=== PATIENT | female | born 1985 | race American Indian/Alaskan Native ===

== ENCOUNTER 2016-09-28 08:00 | Emergency (ER) | payer SELFPAY ==
[2016-09-28 08:32] LABS: Basophils % (Auto) 0.5 % (0.0-1.8); Hematocrit 41.9 % (30.3-42.9); Hemoglobin 14.3 gm/dl (10.1-14.3); Mean Corpuscular HGB Conc 34 % (30-34); Mean Corpuscular Hemoglobin 31 pg (28-32); Mean Corpuscular Volume 90 fl (79-97); Platelet Count 278 K/mm3 (140-440); Red Blood Count 4.65 M/mm3 (3.65-5.03); Red Cell Distribution Width 15.1 % (13.2-15.2); White Blood Count 7.9 K/mm3 (4.5-11.0)
[2016-09-28 08:56] LABS: Alanine Aminotransferase 12 units/L (7-56); Albumin 5.3 g/dL (3.9-5); Albumin/Globulin Ratio 1.4 %; Alkaline Phosphatase 63 units/L (35-129); Anion Gap 23 mmol/L; BUN/Creatinine Ratio 23.33; Bilirubin,Total 0.9 mg/dL (0.1-1.2); Blood Urea Nitrogen 14 mg/dL (7-17); Calcium 10.2 mg/dL (8.4-10.2); Carbon Dioxide 24 mmol/L (22-30); Glucose 110 mg/dL (65-100); Lipase 25 units/L (13-60); Potassium 3.5 mmol/L (3.6-5.0); Sodium 137 mmol/L (137-145); Total Protein 9.1 g/dL (6.3-8.2)
[2016-09-28 11:16] LABS: Bacteria,Urine 1+ /HPF (Negative); Bilirubin,Urine NEG (Negative); Blood,Urine NEG (Negative); Ketones,Urine 20 mg/dL (Negative); Leukocyte Esterase,Urine TR (Negative); Mucus,Urine 3+ /HPF; Nitrite,Urine NEG (Negative); Urobilinogen,Urine < 2.0 mg/dL (<2.0)
--- NOTE | 2016-09-28 16:46 | Emergency Department Report ---
ED Abdominal Pain HPI - General Chief Complaint: Abdominal Pain Stated Complaint: ABD PAIN Time Seen by Provider: 09/28/16 16:44 Source: patient Mode of arrival: Ambulatory Limitations: No Limitations - History of Present Illness Initial Comments: The patient complains of epigastric abdominal discomfort for the last 5 days. She states that she's been to the doctor several times for similar such discomfort. She is a poor historian and can't describe it very well. She has not been vomiting. She denies fever or chills. She states pain is not postprandial. She does not complain of any back pain or any apparent symptoms. She's had previous diagnostic testing for this problem with no specific diagnosis. She states that she does have a primary care provider. MD Complaint: abdominal pain -: Gradual Location: epigastric Radiation: none Migration to: no migration Severity: moderate Quality: aching Consistency: intermittent Improves With: nothing Worsens With: nothing Associated Symptoms: denies other symptoms - Related Data Previous Rx's Medication Instructions Recorded Last Taken Type Lansoprazole [Prevacid] 15 mg PO BID #20 cap 09/28/16 Unknown Rx Sulfamethoxazole/Trimethoprim 1 each PO BID #10 tablet 09/28/16 Unknown Rx [Bactrim DS TAB] traMADol [Ultram] 50 mg PO Q6HR PRN #10 tablet 09/28/16 Unknown Rx Allergies Allergy/AdvReac Type Severity Reaction Status Date / Time No Known Allergies Allergy Unverified 10/20/14 16:54 ED Review of Systems ROS: Stated complaint: ABD PAIN Other details as noted in HPI Constitutional: denies: chills, fever Eyes: denies: eye pain, eye discharge, vision change ENT: denies: ear pain, throat pain Respiratory: denies: cough, shortness of breath, wheezing Cardiovascular: denies: chest pain, palpitations Endocrine: no symptoms reported Gastrointestinal: as per HPI, abdominal pain. denies: nausea, diarrhea Genitourinary: denies: urgency, dysuria, discharge Musculoskeletal: denies: back pain, joint swelling, arthralgia Skin: denies: rash, lesions Neurological: denies: headache, weakness, paresthesias Psychiatric: denies: anxiety, depression Hematological/Lymphatic: denies: easy bleeding, easy bruising ED Past Medical Hx - Past Medical History Previous Medical History?: Yes Hx Hypertension: No Hx Congestive Heart Failure: No Hx Diabetes: No Hx Deep Vein Thrombosis: No Hx Renal Disease: No Hx Sickle Cell Disease: No Hx Seizures: No Hx Asthma: No Hx COPD: No Hx HIV: No Additional medical history: Vaginal delivery x 5 - Surgical History Past Surgical History?: No - Social History Smoking Status: Never Smoker Substance Use Type: None - Medications Home Medications: Home Medications Medication Instructions Recorded Confirmed Last Taken Type Lansoprazole [Prevacid] 15 mg PO BID #20 cap 09/28/16 Unknown Rx Sulfamethoxazole/Trimethoprim 1 each PO BID #10 tablet 09/28/16 Unknown Rx [Bactrim DS TAB] traMADol [Ultram] 50 mg PO Q6HR PRN #10 tablet 09/28/16 Unknown Rx ED Physical Exam - General Limitations: No Limitations General appearance: alert, in no apparent distress - Head Head exam: Present: atraumatic, normocephalic - Eye Eye exam: Present: normal appearance - ENT ENT exam: Present: normal exam, mucous membranes moist - Neck Neck exam: Present: normal inspection - Respiratory Respiratory exam: Present: normal lung sounds bilaterally. Absent: respiratory distress - Cardiovascular Cardiovascular Exam: Present: regular rate, normal rhythm. Absent: systolic murmur, diastolic murmur, rubs, gallop - GI/Abdominal GI/Abdominal exam: Present: soft, normal bowel sounds, other (this was a totally negative abdominal examination). Absent: distended, tenderness, guarding, rebound, rigid, organomegaly, mass, bruit, pulsatile mass, hernia - Extremities Exam Extremities exam: Present: normal inspection - Back Exam Back exam: Present: normal inspection - Neurological Exam Neurological exam: Present: alert, oriented X3 - Psychiatric Psychiatric exam: Present: normal affect, normal mood - Skin Skin exam: Present: warm, dry, intact, normal color. Absent: rash ED Course Vital Signs 09/28/16 09/28/16 08:06 16:31 Temperature 98.7 F 98.6 F Pulse Rate 84 Respiratory 18 Rate Blood Pressure 152/108 O2 Sat by Pulse 100 100 Oximetry - Reevaluation(s) Reevaluation #1: Patient was found to have persistent hypertension. She will be started on an oral agent. She is appropriate for outpatient follow-up. 09/28/16 17:41 ED Medical Decision Making - Lab Data Result diagrams: 09/28/16 08:18 09/28/16 08:18 Laboratory Results - last 24 hr 09/28/16 09/28/16 09/28/16 08:18 08:18 10:44 WBC 7.9 RBC 4.65 Hgb 14.3 Hct 41.9 MCV 90 MCH 31 MCHC 34 RDW 15.1 Plt Count 278 Lymph % (Auto) 18.2 Cotton % (Auto) 5.8 Eos % (Auto) 0.0 Baso % (Auto) 0.5 Lymph # 1.4 Cotton # 0.5 Eos # 0.0 Baso # 0.0 Seg Neutrophils % 75.5 H Seg Neutrophils # 6.0 Sodium 137 Potassium 3.5 L Chloride 94.0 L Carbon Dioxide 24 Anion Gap 23 BUN 14 Creatinine 0.6 L Estimated GFR > 60 BUN/Creatinine Ratio 23.33 Glucose 110 H Calcium 10.2 Total Bilirubin 0.9 AST 15 ALT 12 Alkaline Phosphatase 63 Total Protein 9.1 H Albumin 5.3 H Albumin/Globulin Ratio 1.4 Lipase 25 Urine Color Yellow Urine Turbidity Clear Urine pH 5.0 Ur Specific [place] 1.032 H Urine Protein 100 mg/dl Urine Glucose (UA) Neg Urine Ketones 20 Urine Blood Neg Urine Nitrite Neg Ur Reducing Substances Not Reportable Urine Bilirubin Neg Urine Ictotest Not Reportable Urine Urobilinogen < 2.0 Ur Leukocyte Esterase Tr Urine WBC (Auto) 17.0 H Urine RBC (Auto) 5.0 U Epithel Cells (Auto) 4.0 Urine Bacteria (Auto) 1+ Urine Mucus 3+ Urine HCG, Qual Negative Critical care attestation.: If time is entered above; I have spent that time in minutes in the direct care of this critically ill patient, excluding procedure time. ED Disposition Clinical Impression: Abdominal pain Qualifiers: Abdominal location: upper abdomen, unspecified Qualified Code(s): R10.10 - Upper abdominal pain, unspecified UTI (urinary tract infection) Qualifiers: Urinary tract infection type: site unspecified Hematuria presence: without hematuria Qualified Code(s): N39.0 - Urinary tract infection, site not specified Disposition: DISCHARGED TO HOME OR SELFCARE Is pt being admited?: No Does the pt Need Aspirin: No Condition: Stable Instructions: Abdominal Pain (ED), Urinary Tract Infection in Women (ED) Additional Instructions: Return any acute change or problem. Increase fluids. Follow-up with your primary care provider or at the [facility] as needed. Prescriptions: Lansoprazole [Prevacid] 15 mg PO BID #20 cap Sulfamethoxazole/Trimethoprim [Bactrim DS TAB] 1 each PO BID #10 tablet traMADol [Ultram] 50 mg PO Q6HR PRN #10 tablet PRN Reason: Pain Referrals: PRIMARY CARE,MD [Primary Care Provider] - 3-5 Days Time of Disposition: 17:43
[2016-09-28] MEDS ORDERED: PROTONIX PO ONE (17:45)
[2016-09-28] MEDS ORDERED: ULTRAM PO ONE (17:45)
[2016-09-28 19:25] VITALS: BP 165/105
== END 2016-09-28 18:05 | disposition home or self-care (01) ==
LOC: ED 08:00
DX: N39.0 Urinary tract infection, site not specified (principal)
CPT/HCPCS: 36415; 80053; 81001; 81025; 83690; 85025; 99283

== ENCOUNTER 2017-05-03 08:22 | Emergency (ER) | payer SELFPAY ==
[2017-05-03 08:29] VITALS: BP 144/98
[2017-05-03 09:13] LABS: Basophils % (Auto) 0.4 % (0.0-1.8); Hematocrit 37.6 % (30.3-42.9); Hemoglobin 12.6 gm/dl (10.1-14.3); Mean Corpuscular HGB Conc 33 % (30-34); Mean Corpuscular Hemoglobin 29 pg (28-32); Mean Corpuscular Volume 87 fl (79-97); Platelet Count 224 K/mm3 (140-440); Red Blood Count 4.32 M/mm3 (3.65-5.03); Red Cell Distribution Width 15.2 % (13.2-15.2); White Blood Count 8.5 K/mm3 (4.5-11.0)
[2017-05-03 09:23] LABS: Alanine Aminotransferase 79 units/L (7-56); Albumin 4.8 g/dL (3.9-5); Albumin/Globulin Ratio 1.4 %; Alkaline Phosphatase 53 units/L (35-129); Anion Gap 19 mmol/L; BUN/Creatinine Ratio 20; Blood Urea Nitrogen 10 mg/dL (7-17); Calcium 9.3 mg/dL (8.4-10.2); Carbon Dioxide 27 mmol/L (22-30); Chloride 92.8 mmol/L (98-107); Glucose 110 mg/dL (65-100); Lipase 24 units/L (13-60); Potassium 3.4 mmol/L (3.6-5.0); Sodium 135 mmol/L (137-145); Total Protein 8.3 g/dL (6.3-8.2)
[2017-05-03 10:18] LABS: Bacteria,Urine 1+ /HPF (Negative); Mucus,Urine FEW /HPF
[2017-05-03 10:41] LABS: Bilirubin,Urine NEG (Negative); Blood,Urine NEG (Negative); Ketones,Urine 20 mg/dL (Negative); Leukocyte Esterase,Urine MOD (Negative); Nitrite,Urine NEG (Negative)
[2017-05-03] MEDS ORDERED: NORCO 5/325 PO ONE (12:01)
[2017-05-03] MEDS ORDERED: ZOFRAN ODT PO ONE (12:01)
[2017-05-03] MEDS ORDERED: PEPCID PO ONE (12:08)
[2017-05-03] MEDS ORDERED: LIDOCAINE VISCOUS 2% PO ONE (12:08)
--- NOTE | 2017-05-03 12:20 | Emergency Department Report ---
HPI - General Chief Complaint: Abdominal Pain Time Seen by Provider: 05/03/17 11:22 - HPI HPI: The patient is a 31-year-old female presents for evaluation of abdominal pain. The patient reports abdominal pain for the past 4 hours, constant since onset, crampy in quality, epigastric in location, 10/10 in severity, exacerbated with eating. She also reports associated nausea, one to 2 episodes of vomiting, and multiple episodes of loose watery stools. The patient denies fever, chills, night sweats, blood in the stool, dark tarry stool, recent antibiotic use, dysuria, hematuria, flank pain, genital discharge, inability to pass flatus. ED Past Medical Hx - Past Medical History Previous Medical History?: No Hx Hypertension: No Hx Congestive Heart Failure: No Hx Diabetes: No Hx Deep Vein Thrombosis: No Hx Renal Disease: No Hx Sickle Cell Disease: No Hx Seizures: No Hx Asthma: No Hx COPD: No Hx HIV: No Additional medical history: Vaginal delivery x 5 - Social History Smoking Status: Never Smoker Substance Use Type: None - Medications Home Medications: Home Medications Medication Instructions Recorded Confirmed Last Taken Type Amlodipine Besylate [Norvasc] 2.5 mg PO DAILY #30 tab 09/28/16 Unknown Rx Lansoprazole [Prevacid] 15 mg PO BID #20 cap 09/28/16 Unknown Rx traMADol [Ultram 50 MG tab] 50 mg PO Q6HR PRN #10 tablet 09/28/16 Unknown Rx Omeprazole Magnesium [PriLOSEC Otc] 20 mg PO QDAY #14 tablet. 05/03/17 Unknown Rx Ondansetron [Zofran TAB] 4 mg PO Q8HR PRN #20 tablet 05/03/17 Unknown Rx traMADol [Ultram 50 MG tab] 50 mg PO Q6HR PRN #15 tablet 05/03/17 Unknown Rx ED Review of Systems ROS: Stated complaint: STOMACH Other details as noted in HPI Constitutional: denies: fever ENT: denies: throat or neck pain Respiratory: denies: cough, shortness of breath Cardiovascular: denies: chest pain Endocrine: denies unexplained weight loss or gain Gastrointestinal: reports abdominal pain, nausea Genitourinary: denies: dysuria Musculoskeletal: denies: leg swelling Skin: denies: rash Neurological: denies: headache Hematological/Lymphatic: denies: easy bleeding or easy bruising Psych: denies sadness or hopelessness Physical Exam - Physical Exam Vital Signs: Vital Signs 05/03/17 05/03/17 08:24 12:07 Temperature 99 F Pulse Rate 83 Respiratory 19 18 Rate Blood Pressure 144/98 O2 Sat by Pulse 100 Oximetry Physical Exam: General: well-nourished, well-developed, no acute distress Head: Normocephalic, atraumatic Eyes: normal sclera ENT: Mucous membranes are pink and moist Neck: trachea midline, neck supple, No neck stiffness, no cervical adenopathy Respiratory: Breath sounds equal bilaterally, no wheezing, rales, or rhonchi Cardio: S1 and S2 present, no murmurs, rubs, gallops, capillary refill is brisk Abdomen: Normoactive bowel sounds, soft abdomen, LUQ and epigastric abd pain, no rigidity, no guarding or rebound tenderness Chest WALL/Back: No tenderness to palpation of the chest wall, no CVA tenderness with percussion Musc: No pitting edema Skin: No rash Neuro: no facial drooping, normal speech Psych: Normal affect ED Course Vital Signs 05/03/17 05/03/17 08:24 12:07 Temperature 99 F Pulse Rate 83 Respiratory 19 18 Rate Blood Pressure 144/98 O2 Sat by Pulse 100 Oximetry ED Medical Decision Making - Lab Data Result diagrams: 05/03/17 08:54 05/03/17 08:54 - Medical Decision Making The patient was seen and examined by myself. The patient is placed on a director of cardiac rehabilitation and continuous pulse ox. On initial evaluation, the patient was found to be in no distress. Evaluation orders are placed. The patient is given a tablet of Zofran for nausea and [place] for pain. Lab results were non- concerning including WBC, hemoglobin, hematocrit, electrolytes, renal function, LFTs, lipase, negative test, and nml urinalysis. The patient was reevaluated and reported that their symptoms were markedly improved. The patient is stable for discharge with outpatient follow-up. The patient is given follow-up and return instructions. The patient expressed understanding and agreed with the plan. The patient is discharged in stable condition. Critical care attestation.: If time is entered above; I have spent that time in minutes in the direct care of this critically ill patient, excluding procedure time. ED Disposition Clinical Impression: Abdominal pain, acute, left upper quadrant, Acute epigastric pain, Nausea and vomiting in adult Disposition: DC-01 TO HOME OR SELFCARE Is pt being admited?: No Does the pt Need Aspirin: No Condition: Stable Instructions: Abdominal Pain (ED), Gastroenteritis (ED), Gastroesophageal Reflux Disease (ED) Prescriptions: Omeprazole Magnesium [PriLOSEC Otc] 20 mg PO QDAY #14 tablet. Ondansetron [Zofran TAB] 4 mg PO Q8HR PRN #20 tablet PRN Reason: Nausea traMADol [Ultram 50 MG tab] 50 mg PO Q6HR PRN #15 tablet PRN Reason: Pain Referrals: PRIMARY CARE,MD [Primary Care Provider] - 3-5 Days Time of Disposition: 12:16
== END 2017-05-03 12:25 | disposition home or self-care (01) ==
LOC: ED 08:22
DX: R10.13 Epigastric pain (principal); R11.2 Nausea with vomiting, unspecified
CPT/HCPCS: 36415; 80053; 81001; 81025; 83690; 85025; Q0162

== ENCOUNTER 2017-06-18 14:41 | Emergency (ER) | payer SELFPAY ==
[2017-06-18 15:56] LABS: Basophils % (Auto) 0.2 % (0.0-1.8); Hematocrit 39.4 % (30.3-42.9); Hemoglobin 12.6 gm/dl (10.1-14.3); Lymphocytes # (Auto) 0.9 K/mm3 (1.2-5.4); Lymphocytes % (Auto) 10.5 % (13.4-35.0); Mean Corpuscular HGB Conc 32 % (30-34); Mean Corpuscular Hemoglobin 28 pg (28-32); Mean Corpuscular Volume 88 fl (79-97); Monocytes # (Auto) 0.2 K/mm3 (0.0-0.8); Monocytes % (Auto) 2.7 % (0.0-7.3); Platelet Count 276 K/mm3 (140-440); Red Blood Count 4.46 M/mm3 (3.65-5.03); Red Cell Distribution Width 15.8 % (13.2-15.2)
[2017-06-18 16:54] LABS: Alanine Aminotransferase 15 units/L (7-56); Albumin 4.9 g/dL (3.9-5); BUN/Creatinine Ratio 15; Blood Urea Nitrogen 9 mg/dL (7-17); Calcium 10.1 mg/dL (8.4-10.2); Hemolysis Index 6
[2017-06-19] MEDS ORDERED: ZOFRAN IV ONE (07:11)
[2017-06-19] MEDS ORDERED: NACL 0.9% 1000 ML 1,000 ML IV ONE (07:11)
--- NOTE | 2017-06-19 07:20 | Emergency Department Report ---
ED Abdominal Pain HPI - General Chief Complaint: Abdominal Pain Stated Complaint: N/V Time Seen by Provider: 06/19/17 04:18 Source: patient Mode of arrival: Ambulatory Limitations: No Limitations - History of Present Illness Initial Comments: Patient is 31 years old female with no significant past medical history presented to the ER with chief complaint of abdominal pain diffuse, crampy and does not radiate associated with nausea and vomiting and watery diarrhea. Patient denied any fever. Patient stated that she just finished her period MD Complaint: abdominal pain -: Gradual, Last night Location: diffuse Severity scale (0 -10): 10 Quality: cramping Consistency: constant Associated Symptoms: nausea, vomiting, diarrhea - Related Data Previous Rx's Medication Instructions Recorded Last Taken Type Amlodipine Besylate [Norvasc] 2.5 mg PO DAILY #30 tab 09/28/16 Unknown Rx Lansoprazole [Prevacid] 15 mg PO BID #20 cap 09/28/16 Unknown Rx traMADol [Ultram 50 MG tab] 50 mg PO Q6HR PRN #10 tablet 09/28/16 Unknown Rx Omeprazole Magnesium [PriLOSEC Otc] 20 mg PO QDAY #14 tablet.dr 05/03/17 Unknown Rx Ondansetron [Zofran TAB] 4 mg PO Q8HR PRN #20 tablet 05/03/17 Unknown Rx traMADol [Ultram 50 MG tab] 50 mg PO Q6HR PRN #15 tablet 05/03/17 Unknown Rx Allergies Allergy/AdvReac Type Severity Reaction Status Date / Time No Known Allergies Allergy Unverified 06/18/17 15:34 ED Review of Systems ROS: Stated complaint: N/V Other details as noted in HPI Comment: All other systems reviewed and negative Constitutional: denies: chills, fever Respiratory: denies: cough, orthopnea, shortness of breath, SOB with exertion, SOB at rest Cardiovascular: denies: chest pain, palpitations, dyspnea on exertion Gastrointestinal: abdominal pain, nausea, vomiting, diarrhea. denies: constipation, hematemesis, melena, hematochezia Genitourinary: denies: urgency, dysuria, frequency, hematuria, discharge, abnormal menses, dyspareunia Skin: denies: rash, lesions, change in color, change in hair/nails Neurological: denies: headache, weakness, numbness, paresthesias, confusion, abnormal gait ED Past Medical Hx - Past Medical History Previous Medical History?: No Hx Hypertension: No Hx Congestive Heart Failure: No Hx Diabetes: No Hx Deep Vein Thrombosis: No Hx Renal Disease: No Hx Sickle Cell Disease: No Hx Seizures: No Hx Asthma: No Hx COPD: No Hx HIV: No Additional medical history: Vaginal delivery x 5 - Surgical History Past Surgical History?: No - Social History Smoking Status: Never Smoker Substance Use Type: None - Medications Home Medications: Home Medications Medication Instructions Recorded Confirmed Last Taken Type Amlodipine Besylate [Norvasc] 2.5 mg PO DAILY #30 tab 09/28/16 Unknown Rx Lansoprazole [Prevacid] 15 mg PO BID #20 cap 09/28/16 Unknown Rx traMADol [Ultram 50 MG tab] 50 mg PO Q6HR PRN #10 tablet 09/28/16 Unknown Rx Omeprazole Magnesium [PriLOSEC Otc] 20 mg PO QDAY #14 tablet.dr 05/03/17 Unknown Rx Ondansetron [Zofran TAB] 4 mg PO Q8HR PRN #20 tablet 05/03/17 Unknown Rx traMADol [Ultram 50 MG tab] 50 mg PO Q6HR PRN #15 tablet 05/03/17 Unknown Rx ED Physical Exam - General Limitations: No Limitations General appearance: alert, other (patient is actively vomiting) - Head Head exam: Present: atraumatic, normocephalic, normal inspection - Eye Eye exam: Present: normal appearance - ENT ENT exam: Present: mucous membranes dry - Neck Neck exam: Present: normal inspection, full ROM. Absent: tenderness, meningismus, lymphadenopathy, thyromegaly - Respiratory Respiratory exam: Present: normal lung sounds bilaterally. Absent: respiratory distress, wheezes, rales, rhonchi, stridor, chest wall tenderness, accessory muscle use, decreased breath sounds, prolonged expiratory - Cardiovascular Cardiovascular Exam: Present: tachycardia, normal heart sounds. Absent: systolic murmur, diastolic murmur, rubs - GI/Abdominal GI/Abdominal exam: Present: soft, tenderness, normal bowel sounds. Absent: distended, guarding, rebound, rigid, diminished bowel sounds, organomegaly, mass , bruit, pulsatile mass, hernia - Extremities Exam Extremities exam: Present: normal inspection, full ROM, normal capillary refill - Back Exam Back exam: Present: normal inspection, full ROM. Absent: tenderness, CVA tenderness (R), CVA tenderness (L), muscle spasm, paraspinal tenderness, vertebral tenderness - Neurological Exam Neurological exam: Present: alert, oriented X3, CN II-XII intact, normal gait - Skin Skin exam: Present: warm, dry, intact, normal color ED Course Vital Signs 06/18/17 06/19/17 06/19/17 15:31 00:20 06:42 Temperature 98.5 F 99.0 F 98.9 F Pulse Rate 107 H 92 H 97 H Respiratory 16 18 Rate Blood Pressure 146/106 146/113 Blood Pressure 150/100 [Left] O2 Sat by Pulse 100 100 98 Oximetry 06/19/17 08:24 Temperature Pulse Rate Respiratory 24 Rate Blood Pressure Blood Pressure [Left] O2 Sat by Pulse 98 Oximetry - Reevaluation(s) Reevaluation #1: 06/19/17 14:24 Patient stated that she is feeling much better, no abdominal pain and no vomiting. ED Medical Decision Making - Lab Data Result diagrams: 06/18/17 15:42 06/18/17 15:42 - Radiology Data Radiology results: report reviewed Referring Physician: MAVIS PETERSEN Patient Name: KEVIN NAPIER Date of : 1985 Sex: Female Report Date: 2017-06-19 Report Status: Finalized [place] [address] Cat Scan Report Signed Patient: KEVIN NAPIER MR#: [id number] : 1985 Acct:[id number] Age/Sex: 31 / F ADM Date: 06/18/17 Loc: ED Attending Dr: Ordering Physician: MAVIS PETERSEN Date of Service: 06/19/17 Procedure(s): CT abdomen pelvis w con Accession Number(s): [id number] cc: MAVIS PETERSEN CT ABDOMEN PELVIS WITH CONTRAST: HISTORY: abdominal pain. COMPARISON: none. TECHNIQUE: Helical CT in 1.25mm intervals following IV contrast. Sagittal and coronal reconstructions. FINDINGS: Lung bases: Normal. Liver: Normal. Biliary system: The gallbladder appears to be contracted and contains a few calcified gallstones measuring up to 1 cm. No biliary dilatation or inflammation is appreciated. Pancreas: Normal. Spleen: Normal. Kidneys/ureters/bladder: Normal. Adrenal glands: Normal. Aorta: Normal. Intestines: Unremarkable given no oral contrast was administered. Appendix: Normal. Pelvic viscera: The uterus and adnexa are unremarkable. An IUD is in place. Ascites: None. Adenopathy: None. Musculoskeletal: Normal. IMPRESSION: No acute process is identified in the abdomen or pelvis. Cholelithiasis. Transcribed By: TTR Dictated By: ELDON BIGGS JR, MD Electronically Authenticated By: ELDON BIGGS JR, MD Signed Date/Time: 06/19/171338 DD/ 36 TD/TT: 06/19/171338 Critical care attestation.: If time is entered above; I have spent that time in minutes in the direct care of this critically ill patient, excluding procedure time. ED Disposition Clinical Impression: Abdominal pain, Gastroenteritis Disposition: - TO HOME OR SELFCARE Is pt being admited?: No Condition: Stable Instructions: Abdominal Pain (ED), Gastroenteritis (ED) Referrals: TASH BROWER MD [Primary Care Provider] - 3-5 Days
[2017-06-19 08:47] LABS: Amorphous Crystals,Urine 2+; Bacteria,Urine 3+ /HPF (Negative); Bilirubin,Urine NEG (Negative); Blood,Urine NEG (Negative); Color,Urine Amber (Yellow); Mucus,Urine 3+ /HPF; Nitrite,Urine NEG (Negative)
[2017-06-19] MEDS ORDERED: REGLAN IV ONE (09:45)
--- NOTE | 2017-06-19 13:45 | Cat Scan Report ---
CT ABDOMEN PELVIS WITH CONTRAST: HISTORY: abdominal pain. COMPARISON: none. TECHNIQUE: Helical CT in 1.25mm intervals following IV contrast. Sagittal and coronal reconstructions. FINDINGS: Lung bases: Normal. Liver: Normal. Biliary system: The gallbladder appears to be contracted and contains a few calcified gallstones measuring up to 1 cm. No biliary dilatation or inflammation is appreciated. Pancreas: Normal. Spleen: Normal. Kidneys/ureters/bladder: Normal. Adrenal glands: Normal. Aorta: Normal. Intestines: Unremarkable given no oral contrast was administered. Appendix: Normal. Pelvic viscera: The uterus and adnexa are unremarkable. An IUD is in place. Ascites: None. Adenopathy: None. Musculoskeletal: Normal. IMPRESSION: No acute process is identified in the abdomen or pelvis. Cholelithiasis.
[2017-06-19 21:47] VITALS: BP 146/88
== END 2017-06-19 14:45 | disposition home or self-care (01) ==
LOC: ED 14:41
DX: K52.9 Noninfective gastroenteritis and colitis, unspecified (principal)
CPT/HCPCS: 36415; 74177; 80053; 81001; 83690; 84703; 85025; 96361; 96374; 96375; 99284; J2405; J2765; J7030; Q9967

== ENCOUNTER 2020-07-10 13:49 | Outpatient (CLI) | payer MEDICAID ==
[2020-07-10] MEDS ORDERED: LACTATED RINGERS 500 ML IV ONE (14:02)
[2020-07-10 14:59] LABS: Mucus,Urine FEW /HPF
[2020-07-10 15:00] LABS: Bilirubin,Urine NEG (Negative); Blood,Urine NEG (Negative); Color,Urine Yellow (Yellow); Protein,Urine <15 mg/dL mg/dL (Negative); Urobilinogen,Urine < 2.0 mg/dL (<2.0)
[2020-07-10] MEDS ORDERED: ACETAMINOPHEN 500 MG TAB PO ONE (17:25)
[2020-07-10 17:43] VITALS: BP 132/75
== END 2020-07-10 17:46 | disposition home or self-care (01) ==
LOC: TRG 13:49 → APU 13:50 → TRG 17:46
PROVIDERS: ATTEND Obstetrics & Gynecology
DX: O26.893 Other specified pregnancy related conditions, third trimester (principal); R10.9 Unspecified abdominal pain; Z3A.34 34 weeks gestation of pregnancy
CPT/HCPCS: 59025; 81001; J7120; 96360

== ENCOUNTER 2020-08-15 15:43 | Inpatient (IN) | payer MEDICAID ==
[2020-08-15] MEDS ORDERED: NalbUPHINE 10 MG/1 ML INJ IV PRN (15:50)
[2020-08-15] MEDS ORDERED: TERBUTALINE 1 MG/1 ML INJ SUB-Q PRN (15:50)
[2020-08-15] MEDS ORDERED: ONDANSETRON 4 MG/2 ML INJ IV PRN ×2 (15:50→22:38)
[2020-08-15] MEDS ORDERED: NALOXONE 0.4 MG/1 ML INJ IV PRN (15:50)
[2020-08-15] MEDS ORDERED: ACETAMINOPHEN 325 MG TAB PO PRN (15:50)
[2020-08-15] MEDS ORDERED: LIDOCAINE (2%) 20 MG/1 ML VIAL 20 ML MDV INFILTRATI ONE (15:50)
[2020-08-15] MEDS ORDERED: BUTORPHANOL 2 MG/1 ML INJ IV PRN ×2 (15:50)
[2020-08-15] MEDS ORDERED: ePHEDrine SULFATE 50 MG/1 ML INJ IV PRN ×2 (15:50→17:37)
[2020-08-15] MEDS ORDERED: fentaNYL 100 MCG/2 ML INJ IV PRN (15:50)
[2020-08-15] MEDS ORDERED: OXYTOCIN DRIP 30 UNITS/500 ML BAG IV SCH ×2 (16:00)
[2020-08-15] MEDS ORDERED: AMPICILLIN/NS 2 GM/100 ML 2 GM/100 ML BAG IV ONE (16:00)
[2020-08-15] MEDS ORDERED: LACTATED RINGERS 1,000 ML IV SCH (16:00)
[2020-08-15 16:18] LABS: Hematocrit 36.6 % (30.3-42.9); Hemoglobin 12.3 gm/dl (10.1-14.3); Mean Corpuscular HGB Conc 34 % (30-34); Mean Corpuscular Volume 83 fl (79-97); Red Cell Distribution Width 17.7 % (13.2-15.2)
[2020-08-15 16:30] LABS: Platelet Count 169 K/mm3 (140-440)
[2020-08-15] MEDS ORDERED: NALOXONE 2 MG/2 ML INJ IV PRN (17:37)
--- NOTE | 2020-08-15 17:38 | Anesthesia Consultation ---
Anesthesia Consult and Med Hx Date of service: 08/15/20 - Airway Anesthetic Teeth Evaluation: Good ROM Head & Neck: Adequate Mental/Hyoid Distance: Adequate Mallampati Class: Class II Intubation Access Assessment: Probably Good - Pulmonary Exam CTA: Yes - Cardiac Exam Cardiac Exam: RRR - Pre-Operative Health Status ASA Pre-Surgery Classification: ASA3 Proposed Anesthetic Plan: Epidural - Pulmonary Hx Smoking: No Hx Asthma: No COPD: No Hx Pneumonia: No Hx Sleep Apnea: No - Cardiovascular System Hx Hypertension: No Hx Coronary Artery Disease: No - Central Nervous System Hx Seizures: No CVA: No Hx Psychiatric Problems: No - Endocrine Hx Renal Disease: No Hx End Stage Renal Disease: No Hx Liver Disease: No Hx Insulin Dependent Diabetes: No Hx Non-Insulin Dependent Diabetes: Yes Hx Thyroid Disease: No Hx Hypothyroidism: No Hx Hyperthyroidism: No - Hematic Hx Anemia: No Hx Sickle Cell Disease: No - Other Systems Hx Alcohol Use: No Hx Cancer: No
--- NOTE | 2020-08-15 17:40 | Progress Note ---
Labor Epidural - Labor Epidural Start Time: 17:28 Stop Time: 17:32 Performed by:: BEN COOK Procedure: Patient is requesting epidural for labor pain. H&P, and labs reviewed. Procedure explained, questions answered, consent obtained. Patient in sitting position with blood pressure cuff and pulse ox on and working. Timeout performed immediately before start of procedure. Sterile chlorahexadine 0.5% prep/drape. 3 mL 1% lidocaine skin wheal at L[3]-L[4]. 18-gauge Tuohy epidural needle advanced to [id number] with saline at 5 cm. Epidural dexmedetomidine 25 mcg administered. Epidural catheter advanced to 10 cm, negative aspiration for blood and csf, negative test dose 3 ml 1.5% lidocaine with epinephrine. Sterile steri-strips and tegaderm applied, followed by tape reinforcement. Patient tolerated procedure well.
[2020-08-15] MEDS ORDERED: fentaNYL-BUPIV 2 MCG/ML-0.125% 200 MCG/100 ML BAG EPIDURAL SCH (19:00)
[2020-08-15] MEDS ORDERED: AMPICILLIN/NS 1 GM/50 ML 1 GM/50 ML BAG IV SCH (20:00)
[2020-08-15] MEDS ORDERED: SODIUM CHLORIDE 0.9% 1000 ML 1,000 ML ONE (20:16)
--- NOTE | 2020-08-15 20:31 | History and Physical Report ---
History of Present Illness Date of examination: 08/15/20 Date of admission: 08/15/20 15:44 Chief complaint: labor History of present illness: 34y/o @ 39+6 weeks presents in active labor. She denies leakage of fluid. Patient initiated care in the first trimester. Her course is complicated by grand multiparity, GDMA1, history of condyloma. Patient is GBS positive Past History Past Medical History: other (condyloma) Social history: - Obstetrical History Expected Date of Delivery: 08/16/20 Actual Gestation: 39 Week(s) 6 Day(s) : 6 Para: 5 Hx # Term Pregnancies: 4 Number of Pregnancies: 1 Spontaneous Abortions: 0 Induced : 0 Number of Living Children: 5 Medications and Allergies Allergies Allergy/AdvReac Type Severity Reaction Status Date / Time No Known Allergies Allergy Verified 07/10/20 14:06 Home Medications Medication Instructions Recorded Confirmed Last Taken Type One Daily Tablet 1 tab PO DAILY 08/15/20 08/15/20 08/15/20 09:00 History Active Meds: Active Medications Acetaminophen (Acetaminophen 325 Mg Tab) 650 mg PO Q4H PRN PRN Reason: Pain, Mild (1-3) Butorphanol Tartrate (Butorphanol 2 Mg/1 Ml Inj) 1 mg IV Q2H PRN PRN Reason: Pain, Moderate(4-6) LABOR PAIN Butorphanol Tartrate (Butorphanol 2 Mg/1 Ml Inj) 2 mg IV Q2H PRN PRN Reason: Pain , Severe (7-10) Ephedrine Sulfate (Ephedrine Sulfate 50 Mg/1 Ml Inj) 10 mg IV Q2M PRN PRN Reason: Hypotension Fentanyl (Fentanyl 100 Mcg/2 Ml Inj) 100 mcg IV Q2H PRN PRN Reason: Pain,Severe (7-10) LABOR PAIN Last Admin: 08/15/20 17:10 Dose: 100 mcg Documented by: Oxytocin/Sodium Chloride (Pitocin/Ns 30 Unit/500ml) 30 units in 500 mls @ 2 mls/hr IV TITR ROCÍO; Protocol Lactated Ringer's (Lactated Ringers) 1,000 mls @ 125 mls/hr IV DIRECT ROCÍO Last Admin: 08/15/20 16:02 Dose: 125 mls/hr Documented by: Ampicillin Sodium (Ampicillin/Ns 1 Gm/50 Ml) 1 gm in 50 mls @ 100 mls/hr IV Q4H ROCÍO; Protocol Last Admin: 08/15/20 20:04 Dose: 100 mls/hr Documented by: Fentanyl/Bupivacaine/Sodium Chlor (Fentanyl-Bupiv 2 Mcg/Ml-0.125%) 200 mcg in 100 mls @ 12 mls/hr EPIDURAL TITR ROCÍO; Protocol Last Admin: 08/15/20 18:24 Dose: 12 mls/hr Documented by: Mineral Oil (Mineral Oil 30 Ml Oral Liqd) 30 ml PO QHS PRN PRN Reason: Constipation Nalbuphine HCl (Nalbuphine 10 Mg/1 Ml Inj) 10 mg IV Q2H PRN PRN Reason: Pain, Moderate (4-6) Naloxone HCl (Naloxone 2 Mg/2 Ml Inj) 0.2 mg IV Q5M PRN PRN Reason: Respiratory sedation Ondansetron HCl (Ondansetron 4 Mg/2 Ml Inj) 4 mg IV Q8H PRN PRN Reason: Nausea And Vomiting Last Admin: 08/15/20 16:02 Dose: 4 mg Documented by: Terbutaline Sulfate (Terbutaline 1 Mg/1 Ml Inj) 0.25 mg SUB-Q ONCE PRN PRN Reason: Hyperstimulation/Hypertonicity Review of Systems All systems: negative Genitourinary: contractions - Vital Signs Vital signs: Vital Signs Pulse BP 118 H 198/114 08/15/20 15:50 08/15/20 15:50 Temp Pulse Resp BP Pulse Ox 97.6 F 91 H 15 123/68 98 08/15/20 19:02 08/15/20 20:29 08/15/20 19:02 08/15/20 20:29 08/15/20 20:29 - Physical Exam Breasts: Positive: deferred Cardiovascular: Regular rate Lungs: Positive: Clear to auscultation - Obstetrical Cervical Dilatation: 7 Results Result Diagrams: 08/15/20 15:55 Abnormal lab results 08/15/20 Range/Units 15:55 RDW 17.7 H (13.2-15.2) % All other labs normal. Assessment and Plan - Patient Problems (1) Active labor at term Current Visit: Yes Status: Acute Plan to address problem: admit to labor and delivery (2) Gestational diabetes Current Visit: Yes Status: Acute
[2020-08-15] MEDS ORDERED: MINERAL OIL 30 ML ORAL LIQD PO PRN (22:00)
[2020-08-15] MEDS ORDERED: diphenhydrAMINE 25 MG CAP PO PRN (22:38)
[2020-08-15] MEDS ORDERED: LANOLIN/ZINC/DIMETHICONE (LANSINOH) 7 GM TP PRN (22:38)
[2020-08-15] MEDS ORDERED: WITCH HAZEL/ GLYCERIN PAD TP PRN (22:38)
[2020-08-15] MEDS ORDERED: PROMETHAZINE 25 MG TAB PO PRN (22:38)
[2020-08-15] MEDS ORDERED: MAGNESIUM HYDROXIDE (MOM) ORAL LIQD UDC PO PRN (22:38)
[2020-08-15] MEDS ORDERED: PROMETHAZINE 25 MG RECT SUPP PR PRN (22:38)
--- NOTE | 2020-08-15 22:38 | Procedure Note ---
OB Delivery Note - Delivery Date of Delivery: 08/15/20 Surgeon: JOSE M BERNAL Estimated blood loss: 100cc - Vaginal Delivery presentation: vertex Delivery position: OA Intrapartum events: meconium Delivery monitor: external FHT, external uterine Route of delivery: Delivery placenta: spontaneous Delivery cord: 3 umbilical vessels Episiotomy: none Delivery laceration: none Anesthesia: epidural - Infant A at 1 minute: 6 at 5 minutes: 8 Gender: Female (Weight 7 pounds 0 ounces)
[2020-08-16] MEDS: HYDROcodone/ACETAMINOPHEN 5-325 MG TAB PO PRN ×3 (01:23→18:24)
[2020-08-16] MEDS: IBUPROFEN 600 MG TAB PO SCH ×4 (01:26→18:25)
--- NOTE | 2020-08-16 07:48 | Progress Note ---
Assessment and Plan A: PPD#1 s/p at term GDM A1 P: Routine care Accuchek this AM if pt is still fasting Anticipate discharge tomorrow Subjective - Subjective Date of service: 08/16/20 Principal diagnosis: s/p at term, GDMA1 Interval history: Pt without complaints this morning Patient reports: appetite normal, voiding normally, pain well controlled, ambulating normally : doing well Objective - Vital Signs Latest vital signs: Vital Signs Temp Pulse Resp BP BP Pulse Ox 08/16/20 05:20 97.8 F 80 18 118/67 100 08/16/20 01:26 98.2 F 80 18 141/82 100 08/16/20 01:23 18 08/16/20 00:07 95 H 100 08/16/20 00:02 94 H 99 08/15/20 23:57 89 99 08/15/20 23:52 98 H 128/80 99 08/15/20 23:47 99 H 99 08/15/20 23:42 108 H 99 08/15/20 23:37 104 H 121/66 100 08/15/20 23:32 104 H 99 08/15/20 23:27 98 H 99 08/15/20 23:23 103 H 118/60 08/15/20 23:22 103 H 99 08/15/20 23:17 105 H 98 08/15/20 23:12 107 H 98 08/15/20 23:08 92 H 101/64 08/15/20 23:07 106 H 99 08/15/20 23:02 106 H 99 08/15/20 22:57 104 H 99 08/15/20 22:53 107 H 121/76 08/15/20 22:52 98 08/15/20 22:28 106 H 125/67 08/15/20 22:20 112 H 99 08/15/20 22:19 90 08/15/20 22:14 76 47 L 08/15/20 22:13 101 H 69 L 08/15/20 22:09 119 H 95 08/15/20 22:06 124 H 89 08/15/20 22:04 135 H 97 08/15/20 21:59 110 H 119/71 100 08/15/20 21:54 112 H 100 08/15/20 21:49 114 H 98 08/15/20 21:44 106 H 99 08/15/20 21:39 94 H 98 08/15/20 21:34 100 H 98 08/15/20 21:29 99 H 121/60 98 08/15/20 21:24 101 H 98 08/15/20 21:19 98 H 98 08/15/20 21:14 96 H 98 08/15/20 21:12 95 H 94 08/15/20 21:09 121 H 96 08/15/20 21:07 105 H 94 08/15/20 21:04 103 H 99 08/15/20 20:59 110 H 99 08/15/20 20:58 100 H 91 08/15/20 20:54 96 H 93 08/15/20 20:50 92 H 89 08/15/20 20:49 90 99 08/15/20 20:44 111 H 95 08/15/20 20:42 97 H 93 08/15/20 20:39 86 96 08/15/20 20:34 97 H 73 L 08/15/20 20:29 91 H 123/68 98 08/15/20 20:24 106 H 100 08/15/20 20:22 95 H 84 08/15/20 20:19 100 H 98 08/15/20 20:17 91 H 94 08/15/20 20:14 93 H 97 08/15/20 20:09 86 98 08/15/20 20:04 95 H 95 08/15/20 19:59 89 100 08/15/20 19:58 70 122/79 08/15/20 19:56 81 89 08/15/20 19:54 74 100 08/15/20 19:51 80 90 08/15/20 19:49 80 100 08/15/20 19:44 85 100 08/15/20 19:39 82 99 08/15/20 19:34 75 100 08/15/20 19:29 77 109/69 100 08/15/20 19:24 77 100 08/15/20 19:19 85 99 08/15/20 19:14 75 99 08/15/20 19:09 76 99 08/15/20 19:04 71 98 08/15/20 19:03 78 105/69 08/15/20 19:02 97.6 F 74 15 105/69 98 08/15/20 18:59 85 99/62 99 08/15/20 18:54 83 100 08/15/20 18:49 89 98 08/15/20 18:44 74 100 08/15/20 18:39 81 100 08/15/20 18:34 85 99 08/15/20 18:29 86 98 08/15/20 18:27 73 110/69 08/15/20 18:24 85 97 08/15/20 18:21 82 104/71 08/15/20 18:19 75 98 08/15/20 18:18 78 105/67 08/15/20 18:15 85 100/58 08/15/20 18:14 85 99 08/15/20 18:12 85 94/53 08/15/20 18:09 83 104/59 100 08/15/20 18:06 84 99/57 08/15/20 18:04 74 100 08/15/20 18:03 82 107/63 08/15/20 18:00 77 102/60 08/15/20 17:59 74 99 08/15/20 17:57 75 98/59 08/15/20 17:54 85 98/60 98 08/15/20 17:51 86 101/59 08/15/20 17:49 82 99 08/15/20 17:48 87 111/64 08/15/20 17:45 95 H 112/66 08/15/20 17:44 96 H 99 08/15/20 17:42 86 115/69 08/15/20 17:39 90 133/70 99 08/15/20 17:36 98 H 148/101 08/15/20 17:34 97 H 100 08/15/20 17:33 96 H 145/81 08/15/20 17:29 114 H 98 08/15/20 17:24 84 86 08/15/20 17:20 90 97 08/15/20 17:15 91 H 98 08/15/20 17:10 98 H 20 99 08/15/20 17:05 97 H 99 08/15/20 17:00 98 H 99 08/15/20 16:57 128/75 08/15/20 16:55 95 H 99 08/15/20 16:50 97 H 99 08/15/20 16:45 96 H 99 08/15/20 16:40 98 H 97 08/15/20 16:35 97 H 97 08/15/20 16:30 97 H 99 08/15/20 16:25 105 H 99 08/15/20 16:20 98 H 98 08/15/20 16:15 99 H 98 08/15/20 16:00 115 H 141/93 08/15/20 15:59 99.4 F 20 08/15/20 15:50 118 H 198/114 Intake and Output 08/15/20 08/16/20 08/16/20 22:59 06:59 14:59 Intake Total 400 Output Total 200 500 Balance -200 -100 Intake: Oral 400 Output: Urine 200 500 Indwelling Catheter 200 Void 500 Other: Total, Intake Amount 200 Total, Output Amount 200 500 # Voids Void 1 Weight 59.874 kg Estimated Blood Loss 100 - Exam Breasts: Present: deferred Abdomen: Present: soft Uterus: Present: fundal height at umbilicus Extremities: Present: normal - Labs Labs: Abnormal lab results 08/15/20 08/15/20 Range/Units 15:55 19:23 RDW 17.7 H (13.2-15.2) % POC Glucose 115 H (70-105) mg/dL
--- NOTE | 2020-08-16 07:52 | Discharge Summary ---
Providers - Providers Date of Admission: 08/15/20 15:44 Date of discharge: 08/17/20 Attending physician: JOSE M BERNAL Primary care physician: JOSE M BERNAL Hospitalization Reason for admission: active labor Delivery: Procedure details: Please see delivery note Episiotomy: none Laceration: none Other procedures: none complications: none Discharge diagnosis: IUP at term delivered [place] baby: female Hospital course: Pt admitted in active labor and term and went on to have a spontaneous vaginal delivery which she tolerated well. Her course was uncomplicated and she met discharge criteria on PPD#2. She will follow up in the office in [address] Pierre. Condition at discharge: Stable Disposition: DC-01 TO HOME OR SELFCARE - Discharge Diagnoses (1) Term of female Status: Acute (2) Active labor at term Status: Acute (3) Gestational diabetes Status: Acute Qualifiers: Gestational diabetes mellitus control: diet-controlled Trimester: third trimester Qualified Code(s): O24.410 - Gestational diabetes mellitus in , diet controlled Plan - Discharge Medications Prescriptions: Ferrous Sulfate [Iron 325 MG] 325 mg PO DAILY #30 tablet Ibuprofen [Motrin] 800 mg PO Q8HR PRN #30 tablet PRN Reason: Pain, Moderate (4-6) - Provider Discharge Summary Activity: routine, no sex for 6 weeks, no heavy lifting 4 weeks, no strenuous exercise Diet: routine Instructions: routine Additional instructions: [] Smoking cessation referral if applicable(refer to patient education folder for contact #) [] Refer to [facility] Booklet Call your doctor immediately for: * Fever > 100.5 * Heavy vaginal bleeding ( >1 pad per hour) * Severe persistent headache * Shortness of breath * Reddened, hot, painful area to leg or breast * Drainage or odor from incision. * Keep incision clean and dry at all times and follow doctor's instructions regarding bathing/showering - Follow up plan Follow up: TAHIRA PIERRE MD [Staff Physician] - 09/20/20 (Please call to schedule appt )
--- NOTE | 2020-08-16 09:35 | Post Anesthesia Evaluation ---
- Post Anesthesia Evaluation Patient Participated: Yes Airway Patent: Yes Stable Respiratory Function: Yes Nausea/Vomiting: No Temp > 96.8F: Yes Pain Manageable: Yes Adequeate Hydration: Yes Anesthesia Complications: No Block Receding Appropriately: Yes
[2020-08-16 11:01] LABS: Hematocrit 30.4 % (30.3-42.9); Hemoglobin 10.1 gm/dl (10.1-14.3)
[2020-08-17] MEDS: IBUPROFEN 600 MG TAB PO SCH ×3 (01:47→14:55)
[2020-08-17 16:31] VITALS: BP 127/80
== END 2020-08-17 16:55 | disposition home or self-care (01) | DRG 775 ==
LOC: LD 15:43 → TRG 15:43 → APU 15:44 → LD 15:44 → TRG 16:09 → OB 08-16 00:36
PROVIDERS: ADMIT Obstetrics & Gynecology; ATTEND Obstetrics & Gynecology
PROC: 10E0XZZ Delivery of Products of Conception, External Approach (ICD-10-PCS; principal; 2020-08-15)
PROC: 3E0R3BZ Introduction of Anesthetic Agent into Spinal Canal, Percutaneous Approach (ICD-10-PCS; 2020-08-15)
PROC: 00HU33Z Insertion of Infusion Device into Spinal Canal, Percutaneous Approach (ICD-10-PCS; 2020-08-15)
DX: O24.410 Gestational diabetes mellitus in pregnancy, diet controlled (principal); Z3A.39 39 weeks gestation of pregnancy; Z37.0 Single live birth; Z20.822 Contact with and (suspected) exposure to COVID-19; Z79.899 Other long term (current) drug therapy; O77.0 Labor and delivery complicated by meconium in amniotic fluid
CPT/HCPCS: 36415; 82962; 85014; 85018; 85027; 86850; 86900; 86901; G0378; J0290; J2405; J3010; J7120; U0003

== ENCOUNTER 2020-10-20 05:39 | Day surgery (SDC) | payer MEDICAID ==
[2020-10-20] MEDS ORDERED: LACTATED RINGERS 1,000 ML IV SCH (06:00)
[2020-10-20] MEDS ORDERED: ACETAMINOPHEN 500 MG TAB PO SCH (06:00)
[2020-10-20] MEDS ORDERED: GABAPENTIN 300 MG CAP PO NR (06:00)
[2020-10-20] MEDS ORDERED: MIDAZOLAM 2 MG/2 ML INJ IV NR (06:00)
[2020-10-20] MEDS ORDERED: CELECOXIB 200 MG CAP PO NR (06:00)
[2020-10-20] MEDS ORDERED: BACTERIOSTATIC SODIUM CHLORIDE 0.9% 30 ML VIAL INFILTRATI ONE (06:48)
--- NOTE | 2020-10-20 07:48 | Anesthesia Consultation ---
Anesthesia Consult and Med Hx Date of service: 10/20/20 - Airway Anesthetic Teeth Evaluation: Good ROM Head & Neck: Adequate Mental/Hyoid Distance: Adequate Mallampati Class: Class II Intubation Access Assessment: Probably Good - Pre-Operative Health Status ASA Pre-Surgery Classification: ASA1 Proposed Anesthetic Plan: General - Pulmonary Hx Smoking: No Hx Respiratory Symptoms: No - Cardiovascular System Hx Hypertension: No - Central Nervous System CVA: No - Endocrine Hx Renal Disease: No Hx Liver Disease: No Hx Insulin Dependent Diabetes: No Hx Non-Insulin Dependent Diabetes: No Hx Thyroid Disease: No - Additional Comments Anesthesia Medical History Comments: HTN and DM associated w/ which have resolved. No hx anesthetic complications.
[2020-10-20] MEDS ORDERED: oxyCODONE /ACETAMINOPHEN 5-325MG TAB PO PRN (07:49)
[2020-10-20] MEDS ORDERED: ONDANSETRON 4 MG/2 ML INJ IV PRN (07:49)
--- NOTE | 2020-10-20 07:49 | Anesthesia Day of Surgery ---
Anesthesia Day of Surgery - Day of Surgery Patient Examined: Yes Patient H&P Reviewed: Yes Patient is NPO: Yes
[2020-10-20] MEDS ORDERED: fentaNYL 100 MCG/2 ML INJ ONE (07:53)
[2020-10-20] MEDS ORDERED: ROCURONIUM 50 MG/5 ML INJ IV ONE (07:53)
[2020-10-20] MEDS ORDERED: LIDOCAINE MPF (2%) 20 MG/1 ML VIAL 5 ML ONE (07:53)
[2020-10-20] MEDS ORDERED: propofoL 200 MG/20 ML VIAL IV ONE (07:54)
--- NOTE | 2020-10-20 08:27 | Short Stay Summary ---
Short Stay Documentation Date of service: 10/20/20 Narrative H&P: 34-year-old -0-0-6 with undesired fertility. The patient is aware of other contraceptive options and elected for permanent sterilization. She also has a history of condyloma and requests excision of the lesions. - History Principal diagnosis: Unwanted fertility Past Medical History: other (Condyloma acuminata) Past Surgical History: cholecystectomy Social history: single - Allergies and Medications Current Medications: Allergies No Known Allergies Allergy (Verified 10/14/20 13:28) Home Medications Medication Instructions Recorded Confirmed Last Taken Type No Known Home Medications [No 10/14/20 10/14/20 Unknown History Reported Home Medications] Active Medications Acetaminophen (Acetaminophen 500 Mg Tab) 1,000 mg PO PREOP ROCÍO Stop: 10/20/20 23:00 Last Admin: 10/20/20 07:00 Dose: 1,000 mg Documented by: Celecoxib (Celecoxib 200 Mg Cap) 200 mg PO PREOP NR Stop: 10/20/20 23:00 Last Admin: 10/20/20 07:00 Dose: 200 mg Documented by: Gabapentin (Gabapentin 300 Mg Cap) 300 mg PO PREOP NR Stop: 10/20/20 23:00 Last Admin: 10/20/20 07:00 Dose: 300 mg Documented by: Hydromorphone HCl (Hydromorphone 1 Mg/1 Ml Inj) 0.5 mg IV Q10MIN PRN PRN Reason: Pain , Severe (7-10) Stop: 10/20/20 20:00 Lactated Ringer's (Lactated Ringers) 1,000 mls @ 100 mls/hr IV DIRECT ROCÍO Stop: 10/20/20 23:59 Last Admin: 10/20/20 07:55 Dose: 100 mls/hr Documented by: Midazolam HCl (Midazolam 2 Mg/2 Ml Inj) 2 mg IV PREOP NR Stop: 10/20/20 20:00 Last Admin: 10/20/20 07:56 Dose: 2 mg Documented by: Ondansetron HCl (Ondansetron 4 Mg/2 Ml Inj) 4 mg IV ONCE PRN PRN Reason: Nausea And Vomiting Stop: 10/20/20 13:00 Oxycodone/Acetaminophen (Oxycodone /Acetaminophen 5-325mg Tab) 1 tab PO ONCE PRN PRN Reason: Pain, Moderate (4-6) Stop: 10/20/20 13:00 - Physical exam General appearance: no acute distress Integumentary: no rash HEENT: Atraumatic Lungs: Clear to auscultation Breasts: deferred Heart: Regular rate Gastrointestinal: normal Female Genitourinary: lesions - Brief post op/procedure progress note Date of procedure: 10/20/20 Pre-op diagnosis: Undesired fertility; condyloma Post-op diagnosis: same Procedure: Laparoscopic bilateral tubal ligation with Filshie clips Excision of condyloma acuminata Anesthesia: GETA Surgeon: JOSE M BERNAL Estimated blood loss: minimal Pathology: list (Condyloma) Specimen disposition: to lab Condition: stable - Hospital course Hospital course: The patient was admitted the day of surgery and underwent a tubal ligation and e xcision of condyloma. Please see operative note for details of surgery. Postoperative course was uneventful. - Disposition Condition at discharge: Good Disposition: DC-01 TO HOME OR SELFCARE Short Stay Discharge Plan Activity: other (Pelvic rest for 1 week) Diet: regular Additional Instructions: Follow-up is not required Follow-up as needed Prescriptions: Ibuprofen [Motrin] 800 mg PO Q8HR PRN #30 tablet PRN Reason: Pain , Severe (7-10) HYDROcodone/APAP 5-325 [[place] 5/325] 1 each PO Q6HR PRN #15 tablet PRN Reason: Pain
[2020-10-20] MEDS ORDERED: BUPIVACAINE/PF (0.5%) 5 MG/1 ML 10 ML VIAL INFILTRATI ONE ×2 (08:34→09:18)
[2020-10-20] MEDS ORDERED: ceFAZolin/Water 2 GM/20 ML 2 GM/20 ML SYRINGE IV NR (09:00)
[2020-10-20] MEDS ORDERED: NEOSTIGMINE 10MG/10 ML INJ MDV ONE (09:10)
[2020-10-20] MEDS ORDERED: GLYCOPYRROLATE 0.4 MG/2 ML INJ ONE (09:10)
--- NOTE | 2020-10-20 09:36 | Operative Report ---
Operative Report Operative Report: Date of surgery: October 20, 2020 Preoperative diagnosis: Unwanted fertility; condyloma acuminata Postoperative diagnosis: Same as above Procedure: Laparoscopic bilateral tubal ligation with Filshie clips; excision of condyloma Surgeon: Amy Woodard M.D. Anesthesia: General endotracheal anesthesia Estimated blood loss: Minimal Pathology: Condyloma Findings: Normal uterus tubes and ovaries; 3 small condyloma on the perineum Indication: 34-year-old -0-0-6 with undesired fertility. The patient has a history of condyloma acuminata Procedure: The patient was taken to the operating room and given general endotracheal anesthesia without complication. The patient is prepped and draped in a normal sterile fashion. A bivalve speculum was placed in the patient's vagina and a single-tooth tenaculum was placed on the anterior lip of the cervix .A uterine acorn manipulator was placed, and the bivalve speculum was then removed. There was noted to be 1 small condyloma on the patient's left perineum that was excised with an 11 blade scalpel. 2 additional condyloma were noted near the perianal area which were excised in a similar fashion. Attention was then turned to the patient's abdomen where a 5 mm infraumbilical skin incision was then made. A Veress needle was placed and peritoneal entry was verified water-filled syringe. Insufflation of the peritoneal cavity was performed with CO2 gas. A 5 mm trocar was placed and the laparoscope was then inserted. The patient was then placed in Trendelenburg. A 7 mm suprapubic skin incision was then made. Under direct visualization a 7 mm trocar was then placed. An additional 5 mm left lateral trocar was also placed. General survey of the patient's abdomen revealed normal uterus tubes and ovaries. The fallopian tube was then followed out to the fimbriated end. A Filshie clip was applied to the ampullary portion of the tube this was performed on the contralateral side as well. The trocars were then removed. The pneumoperitoneum was then released. The 5 mm trocar laparoscope was then removed. The skin incisions were then closed with 4-0 Monocryl. The incisions were injected with quarter percent Marcaine. Dressings were applied to the incision. The vaginal instruments were then removed atraumatically. Then successfully extubated and taken to the recovery room. All sponge laps and needle counts were correct x2.
[2020-10-20] MEDS: HYDROmorphone 1 MG/1 ML INJ IV PRN ×2 (09:45→09:55)
[2020-10-20 10:28] VITALS: BP 152/70
--- NOTE | 2020-10-20 11:12 | Post Anesthesia Evaluation ---
- Post Anesthesia Evaluation Patient Participated: Yes Airway Patent: Yes Stable Respiratory Function: Yes Nausea/Vomiting: No Temp > 96.8F: Yes Pain Manageable: Yes Adequeate Hydration: Yes Anesthesia Complications: No
== END 2020-10-20 11:15 | disposition home or self-care (01) ==
LOC: OR 05:39
PROVIDERS: ATTEND Obstetrics & Gynecology
DX: Z30.2 Encounter for sterilization (principal); A63.0 Anogenital (venereal) warts; N89.4 Leukoplakia of vagina; R23.4 Changes in skin texture; L83 Acanthosis nigricans; I10 Essential (primary) hypertension; Z83.3 Family history of diabetes mellitus; Z79.899 Other long term (current) drug therapy; Z82.49 Family history of ischemic heart disease and other diseases of the circulatory system
CPT/HCPCS: 46922; 58671; 81025; 88305; J0690; J1170; J2250; J2405; J2704; J2710; J3010; J7120

== ENCOUNTER 2021-11-30 15:04 | Emergency (ER) | payer MEDICAID ==
[2021-11-30 15:38] VITALS: BP 132/86
[2021-11-30] MEDS ORDERED: KETOROLAC 30 MG/1 ML INJ IV ONE (18:01)
[2021-11-30] MEDS ORDERED: ONDANSETRON 4 MG/2 ML INJ IV ONE ×2 (18:01→21:01)
[2021-11-30] MEDS ORDERED: FAMOTIDINE 20 MG/2 ML INJ IV ONE (18:01)
[2021-11-30 18:24] LABS: Basophils % (Auto) 0.6 % (0.0-1.8); Eosinophils % (Auto) 0.2 % (0.0-4.3); Hematocrit 40.9 % (30.3-42.9); Hemoglobin 13.4 gm/dl (10.1-14.3); Lymphocytes # (Auto) 1.7 K/mm3 (1.2-5.4); Lymphocytes % (Auto) 32.3 % (13.4-35.0); Mean Corpuscular HGB Conc 33 % (30-34); Mean Corpuscular Volume 90 fl (79-97); Monocytes # (Auto) 0.3 K/mm3 (0.0-0.8); Monocytes % (Auto) 5.2 % (0.0-7.3); Platelet Count 215 K/mm3 (140-440); Red Blood Count 4.56 M/mm3 (3.65-5.03); Red Cell Distribution Width 14.8 % (13.2-15.2)
[2021-11-30 18:47] LABS: Alanine Aminotransferase 23 units/L (7-56); Blood Urea Nitrogen 7 mg/dL (7-17); Calcium 9.6 mg/dL (8.4-10.2); Hemolysis Index 10
[2021-11-30 18:50] LABS: BUN/Creatinine Ratio 10
[2021-11-30 19:57] LABS: Bilirubin,Urine NEG (Negative); Blood,Urine LG (Negative); Color,Urine Yellow (Yellow); Urobilinogen,Urine < 2.0 mg/dL (<2.0)
[2021-11-30 19:58] LABS: Mucus,Urine 1+ /HPF
--- NOTE | 2021-11-30 20:50 | Emergency Department Report ---
ED N/V/D HPI - General Chief complaint: Nausea/Vomiting/Diarrhea Stated complaint: STOMACH PAIN Source: patient Mode of arrival: Ambulatory Limitations: No Limitations - History of Present Illness Initial comments: Patient is a A0 35-year-old -[place] female with no past medical history presents to the ED with complaint of acute onset persistent intermittent abdominal pain and nausea and vomiting for the last 5 days. Patient states that the pain is diffuse and worsens with vomiting. Patient denies dizziness, syncope, chest pain or shortness of breath, fever, chills, vaginal discharge, dysuria, urinary frequency and urgency, cough, sore throat, low back pain, numbness and tingling or weakness of lower extremities bilaterally. MD complaint: nausea, vomiting, abdominal pain -: days(s) (5) Description of Vomiting: food contents, watery, bilious Associated Abdominal Pain: Yes (Diffuse) Location: diffuse Radiation: none Severity: moderate Pain Scale: 6 Quality: cramping, aching, sharp Consistency: intermittent Improves with: none Worsens with: vomiting Context: other (Possible dysmenorrhea) Associated Symptoms: denies other symptoms, nausea/vomiting. denies: myalgias, chest pain, cough, diaphoresis, fever/chills, headaches, loss of appetite, malaise, rash, dysuria, shortness of breath, syncope, weakness - Related Data Previous Rx's Medication Instructions Recorded Last Taken Type HYDROcodone/APAP 5-325 [[place] 1 each PO Q6HR PRN #10 tablet 02/22/18 Unknown Rx 5/325] Nitrofurantoin [place]/M-Cryst 100 mg PO Q12HR #14 capsule 02/22/18 Unknown Rx [Macrobid CAP] Ondansetron [Zofran Odt] 4 mg PO Q8H PRN #10 tab.rapdis 02/22/18 Unknown Rx HYDROcodone/APAP 5-325 [[place] 1 each PO Q6HR PRN #15 tablet 10/20/20 Unknown Rx 5/325] Ibuprofen [Motrin] 800 mg PO Q8HR PRN #30 tablet 10/20/20 Unknown Rx Dicyclomine [Bentyl] 20 mg PO Q6H PRN #30 tablet 11/30/21 Unknown Rx Famotidine [Pepcid] 20 mg PO BID #60 tablet 11/30/21 Unknown Rx Ketorolac [Toradol] 10 mg PO Q8H PRN #20 tab 11/30/21 Unknown Rx Ondansetron [Zofran Odt] 4 mg PO Q8HR PRN #20 tab.rapdis 11/30/21 Unknown Rx Allergies Allergy/AdvReac Type Severity Reaction Status Date / Time No Known Allergies Allergy Verified 11/30/21 15:39 ED Review of Systems ROS: Stated complaint: STOMACH PAIN Other details as noted in HPI Constitutional: denies: chills, fever Eyes: denies: eye pain, eye discharge, vision change ENT: denies: ear pain, throat pain Respiratory: denies: cough, shortness of breath, wheezing Cardiovascular: denies: chest pain, palpitations Endocrine: no symptoms reported Gastrointestinal: abdominal pain (Diffuse), nausea, vomiting. denies: diarrhea Genitourinary: denies: urgency, dysuria, discharge Musculoskeletal: denies: back pain, joint swelling, arthralgia Skin: denies: rash, lesions Neurological: denies: headache, weakness, paresthesias Psychiatric: denies: anxiety, depression Hematological/Lymphatic: denies: easy bleeding, easy bruising ED Past Medical Hx - Past Medical History Hx Hypertension: Yes Hx Congestive Heart Failure: No Hx Diabetes: No Hx Deep Vein Thrombosis: No Hx Liver Disease: No Hx Renal Disease: No Hx HIV: No Additional medical history: Vaginal delivery x 5 - Surgical History Hx Cholecystectomy: Yes - Social History Smoking Status: Never Smoker - Medications Home Medications: Home Medications Medication Instructions Recorded Confirmed Last Taken Type HYDROcodone/APAP 5-325 [[place] 1 each PO Q6HR PRN #10 tablet 02/22/18 Unknown Rx 5/325] Nitrofurantoin [place]/M-Cryst 100 mg PO Q12HR #14 capsule 02/22/18 Unknown Rx [Macrobid CAP] Ondansetron [Zofran Odt] 4 mg PO Q8H PRN #10 tab.rapdis 02/22/18 Unknown Rx HYDROcodone/APAP 5-325 [[place] 1 each PO Q6HR PRN #15 tablet 10/20/20 Unknown Rx 5/325] Ibuprofen [Motrin] 800 mg PO Q8HR PRN #30 tablet 10/20/20 Unknown Rx Dicyclomine [Bentyl] 20 mg PO Q6H PRN #30 tablet 11/30/21 Unknown Rx Famotidine [Pepcid] 20 mg PO BID #60 tablet 11/30/21 Unknown Rx Ketorolac [Toradol] 10 mg PO Q8H PRN #20 tab 11/30/21 Unknown Rx Ondansetron [Zofran Odt] 4 mg PO Q8HR PRN #20 tab.rapdis 11/30/21 Unknown Rx ED Physical Exam - General Limitations: No Limitations General appearance: alert, in no apparent distress - Head Head exam: Present: atraumatic, normocephalic, normal inspection - Eye Eye exam: Present: normal appearance, PERRL, EOMI Pupils: Present: normal accommodation - ENT ENT exam: Present: normal exam, normal orophraynx, mucous membranes moist, TM's normal bilaterally, normal external ear exam - Neck Neck exam: Present: normal inspection, full ROM. Absent: tenderness - Respiratory Respiratory exam: Present: normal lung sounds bilaterally. Absent: respiratory distress, wheezes, rales, rhonchi, chest wall tenderness, decreased breath sounds, prolonged expiratory - Cardiovascular Cardiovascular Exam: Present: regular rate, normal rhythm, normal heart sounds. Absent: systolic murmur, diastolic murmur, rubs, gallop - GI/Abdominal GI/Abdominal exam: Present: soft, normal bowel sounds. Absent: tenderness, guarding, rebound, rigid, hyperactive bowel sounds, hypoactive bowel sounds, organomegaly - Extremities Exam Extremities exam: Present: normal inspection, full ROM, normal capillary refill. Absent: tenderness - Back Exam Back exam: Present: normal inspection, full ROM. Absent: tenderness, CVA tenderness (R), CVA tenderness (L), muscle spasm, paraspinal tenderness, vertebral tenderness - Neurological Exam Neurological exam: Present: alert, oriented X3, CN II-XII intact, normal gait, reflexes normal - Psychiatric Psychiatric exam: Present: normal affect, normal mood - Skin Skin exam: Present: warm, dry, intact, normal color. Absent: rash ED Course Vital Signs 11/30/21 15:32 Temperature 98.1 F Pulse Rate 92 H Respiratory 18 Rate Blood Pressure 132/86 [Right] O2 Sat by Pulse 99 Oximetry ED Medical Decision Making - Lab Data Result diagrams: 11/30/21 18:08 11/30/21 18:08 - Medical Decision Making This is a A0 35-year-old -[place] female with no past medical history presents to the ED with complaint of acute onset persistent intermittent abdominal pain and nausea and vomiting for the last 5 days. Patient states that the pain is diffuse and worsens with vomiting. In the ED, patient is alert and oriented x3 and is not in any distress. Patient was treated for pain and also given antiemetics and antacids. Lab test results were reviewed and are all nonactionable except for urinalysis that showed some mild blood in urine consistent with patient's current menstrual cycle. Patient was therefore discharged home on medications for pain and advised to follow-up with her primary care physician or [employer] physician in 5 to 7 days for reevaluation or return to the ED immediately if symptoms get worse. - Differential Diagnosis UTI; GERD; gastroenteritis; ovarian cyst; viral syndrome; Critical care attestation.: If time is entered above; I have spent that time in minutes in the direct care of this critically ill patient, excluding procedure time. ED Disposition Clinical Impression: Abdominal pain in female patient, Nausea and vomiting in adult patient, Severe dysmenorrhea Disposition: 01 HOME / SELF CARE / HOMELESS Is pt being admited?: No Does the pt Need Aspirin: No Condition: Stable Instructions: Abdominal Pain, Adult, [id number], Nausea and Vomiting, Adult, [id number], Dysmenorrhea, [id number] Additional Instructions: All lab test results were reviewed and are all nonactionable. Therefore take medication with food, drink plenty of fluids, follow-up with your primary care physician in 5 to 7 days for reevaluation. Return to the ED immediately if symptoms get worse. Prescriptions: Dicyclomine [Bentyl] 20 mg PO Q6H PRN #30 tablet PRN Reason: Abdominal pain Famotidine [Pepcid] 20 mg PO BID #60 tablet Ketorolac [Toradol] 10 mg PO Q8H PRN #20 tab PRN Reason: Pain , Severe (7-10) Ondansetron [Zofran Odt] 4 mg PO Q8HR PRN #20 tab.rapdis PRN Reason: Nausea Referrals: [facility] [Provider Group] - 3-5 Days Forms: Work/School Release Form(ED) Time of Disposition: 20:50 Print Language: DJIBOUTIAN
[2021-11-30] MEDS ORDERED: MORPHINE 4 MG/1 ML INJ IV ONE (21:01)
== END 2021-11-30 21:58 | disposition home or self-care (01) ==
LOC: ED 15:04
DX: R10.84 Generalized abdominal pain (principal); R11.2 Nausea with vomiting, unspecified; N94.6 Dysmenorrhea, unspecified; I10 Essential (primary) hypertension; Z98.890 Other specified postprocedural states
CPT/HCPCS: 36415; 80053; 81001; 83690; 84703; 85025; 96374; 96375; 96376; 99283; J1885; J2270; J2405; J3490